=== PATIENT | male | born 1990 | race Caucasian/White ===

== ENCOUNTER 2017-07-15 05:38 | Emergency (ER) | payer BC, SELFPAY ==
[2017-07-15 05:39] VITALS: BP 119/70; PULSE 83; RESP 16; TEMP 36.9; O2SAT 96; BMI 19.3
--- NOTE | 2017-07-15 06:06 | ED.VISSUMM ---
- ER Visit Summary Date of Service: 07/15/17 Chief Complaint: [Abdominal pain] History of Present Illness: The patient is a 27 M [who presents the emergency department with abdominal pain. The pain started at 2 AM abruptly. He rates as a 9 out of 10. It is in the epigastric region. He has nausea but no vomiting today. Yesterday he had vomiting and mild pain. He did have one episode of mid back pain that resolved quickly. He does drink 2-4 beers daily. He does smoke. He is otherwise healthy. No new medications he is followed by Dr. Castaneda. He has had right hernia inguinal surgery as a child but no other surgeries.] Physical Examination: [] Afebrile vital signs within acceptable limits WN WD NAD PERRL EOMI MMM NECK supple and nontender, no masses RRR no murmur rub or gallop, no peripheral edema, symmetric radial pulses CTAB no respiratory distress ABDOMEN is soft tenderness maximal in the epigastric region with mild left upper quadrant tenderness, normal bowel sounds, no distension, no rebound or guarding SKIN is warm and dry no rashes Alert and Oriented x3, CN II-XII in tact, no motor or sensory deficits, gait normal No lymphadenopathy Test Results: [] Emergency Department Course and Treatment: [Patient was given fluids morphine and Phenergan. He was given a GI cocktail. Screening labs were obtained. Patient feels moderately better. Screening labs are unremarkable. Do think he likely has gastritis and possibly ulcer disease. I will give him a prescription for Nexium sucralfate and Phenergan for home. He was given careful precautions for which to return he was given instructions for diet modification he was advised to avoid alcohol and he will follow-up with Dr. Bolden next week. He understands if he has worsening pain persistent vomiting or fever he should return to the emergency department] Treatment Plan: [] Disposition: [Discharge] Impression: [1. Epigastric abdominal pain 2. Gastritis versus ulcer disease] This note was generated with Survel[employer]ation software. It may contain incorrect words, spelling, and punctuation that were not noted in review of the chart prior to signing ED Disposition - Plan for ED Patient: Chief Complaint: Abd Pain Referrals: Alan Castaneda MD [Primary Care Provider] -
[2017-07-15] MEDS: proMETHazine 25 MG/ML Syringe 6.25 MG IV (06:16)
[2017-07-15 06:17] LABS: Absolute Lymphocyte Count 2.41 X10^3/ul (0.83-4.51); Absolute Neutrophil Count 4.3 X10^3/uL (2.0-7.7); Basophil# 0.03 X10^3/uL; Basophil% 0.4 % (0-1); Eosinophil# 0.44 X10^3/uL; Eosinophils% 5.6 % (0-5); Hematocrit 44.5 % (40-54); Hemoglobin 15.2 g/dl (13.0-16.5); Lymphocyte # 2.41 X10^3/ul (4.0); Lymphocyte % 30.7 % (19-41); Mean Corp Hgb Conc 34.2 g/gl (32-36); Mean Corpuscular Hgb 31.5 pg (27.0-32.0); Mean Corpuscular Volume 92.3 fL (80-94); Mean Platelet Vol. 9.4 fl (6.2-12.0); Monocyte# 0.62 X10^3/uL; Monocyte% 7.9 % (0-10); Neutrophil # 4.34 X10^3/uL (2.7-7.7); Neutrophil % 55.3 % (47-70); Platelet Count 279 K/mm3 (150-450); RBC Distribution Width CV 12.9 % (11.6-14.6); RBC Distribution Width SD 42.8 fl (35.1-43.9); Red Blood Count 4.82 M/mm3 (4.6-6.2); White Blood Count 7.9 K/mm3 (4.4-11.0)
[2017-07-15 06:18] LABS: POSITIVE COUNT NO; POSITIVE DIFFERENTIAL NO; POSITIVE MORPHOLOGY NO
[2017-07-15] MEDS: Morphine 4 MG/ML Syringe IV (06:19)
[2017-07-15 06:23] LABS: Red Blood Cells-Urine 0 SEEN /hpf (0-5); Squamous Epithelial Cells - UA 0 SEEN /hpf (0-5)
[2017-07-15 06:26] LABS: BUN 14 mg/dL (7-18); Creatinine, Serum 1.02 mg/dL (0.70-1.30); Glucose 88 mg/dL (74-106)
[2017-07-15 06:27] LABS: ALB/GLOB Ratio 1.2 RATIO (0.9-2.4); AST(SGOT) 17 U/L (15-37); Alanine Aminotransfer ALT/SGPT 27 U/L (16-61); Albumin, Serum 3.9 g/dL (3.2-5.0); Alkaline Phosphatase 93 U/L (45-117); Anion Gap 7 (5-15); BUN/Creat Ratio 13.7 RATIO (10-20); Calcium,Total 8.8 mg/dL (8.5-10.1); Chloride 109 mmol/L (98-107); EST Glomerular Filtration Rate 94 mL/min (>60); Est Glom Filt Rate - Afr Amer 114 mL/min (>60); Estimated Creatinine Clearance 94.69 ml/min; Globulin 3.3 g/dL (2.2-4.2); Lipase 95 U/L (73-393); Potassium 4.1 mmol/L (3.5-5.1); Protein, Total 7.2 g/dL (6.4-8.2); Sodium Level 141 mmol/L (136-145)
[2017-07-15 06:32] LABS: Color, Urine Yellow (Yellow); Glucose, Dipstick Normal (Normal); Ketone-Dipstick Negative (Negative); Leukocyte Esterase-Dipstick 25 /ul (Negative); Nitrite-Dipstick Negative (Negative); Occult Blood-Urine Negative /ul (Negative); Protein-Dipstick 15 mg/dl (Negative); Specific Gravity, Urine 1.025 (1.002-1.030); Urine Bilirubin Dipstick Negative (Negative); Urine Clarity Clear (Clear); Urine Urobilinogen 1 mg/dl (Normal)
[2017-07-15 06:46] LABS: Bacteria RARE /hpf (None Seen); Mucous, Urine 1+ /hpf (<or=2+); White Blood Cells 0-5 SEEN /hpf (0-5)
--- NOTE | 2017-07-15 07:07 | DCINST.ED_ITS ---
ED Disposition - Plan for ED Patient: Chief Complaint: Abd Pain Instructions: ED PUD Vs Gastritis Prescriptions: proMETHazine tablet [Phenergan] 25 mg PO Q6H PRN PRN #10 tablet PRN Reason: Nausea Omeprazole [Prilosec] 20 mg PO BID #28 capsule Sucralfate [Carafate] 1 gm PO 4X/DAY #1100 [facility] [place]: Alan Castaneda MD [Primary Care Provider] - 3-5 Days
--- NOTE | 2017-07-15 07:09 | DCINST.ED_ITS ---
ED Disposition - Plan for ED Patient: Chief Complaint: Abd Pain Instructions: ED PUD Vs Gastritis Prescriptions: proMETHazine tablet [Phenergan] 25 mg PO Q6H PRN PRN #10 tablet PRN Reason: Nausea Omeprazole [Prilosec] 20 mg PO BID #28 capsule Sucralfate [Carafate] 1 gm PO 4X/DAY #1100 [facility] [place] Referrals: Alan Castaneda MD [Primary Care Provider] - 3-5 Days
[2017-07-15 07:42] VITALS: BP 122/74; PULSE 81; RESP 16; O2SAT 100
--- NOTE | 2017-07-15 07:48 | ED.RN ---
THIS NURSE REVIEWED D/C INSTRUCTIONS WITH PT. PT VERBALIZED UNDERSTANDING OF INSTRUCTIONS. IV D/C. IV CATHETER INTACT. PT TOLERATED WELL. PT DENIES FURTHER NEEDS OR QUESTIONS AT THIS TIME. PT AMBULATES FROM ROOM ON OWN WITHOUT ASSISTANCE FROM STAFF
== END 2017-07-15 07:58 | disposition home or self-care (01) ==
PROVIDERS: Emergency Provider Emergency Medicine; Family Provider Family Medicine; PCP Family Medicine
DX: R10.13 Epigastric pain (principal); Z72.0 Tobacco use
CPT/HCPCS: 80053; 81001; 83690; 85025; 99283; A4216

== ENCOUNTER 2018-02-08 05:25 | Emergency (ER) | payer SELFPAY ==
[2018-02-08 05:26] VITALS: BP 104/79; PULSE 61; RESP 14; TEMP 36.3; O2SAT 99; BMI 20.2
--- NOTE | 2018-02-08 05:29 | ED.RN ---
NO OLD EKGS IN MUSE
--- NOTE | 2018-02-08 05:53 | EKG12_ITS ---
Test Reason : CHEST PAIN Blood Pressure : / mmHG Vent. Rate : 056 BPM Atrial Rate : 056 BPM P-R Int : 110 ms QRS Dur : 102 ms QT Int : 420 ms P-R-T Axes : 000 096 054 degrees QTc Int : 405 ms Sinus bradycardia with sinus arrhythmia with short AL Rightward axis Voltage criteria for left ventricular hypertrophy Early repolarization Abnormal ECG Confirmed by OSCAR TAY, ROOSEVELT ([id number]), non linear editor IRINA GAINES ([id number]) on 02/11/2018 10:20:51 AM Referred By: KENNETH Confirmed By:ROOSEVELT MOORE MD
[2018-02-08] MEDS: Ketorolac 30 MG/ML Syringe IV (06:00)
--- NOTE | 2018-02-08 06:09 | ED.DCSUM_ITS ---
History of Present Illness Chief Complaint: Chest Pain Informant: Patient Onset: Hours - 2 Context: - - awoke w/ sx Timing: Continuous Quality: sharp Location: left chest and left upper back/scapula area Current Severity: Moderate Maximum Severity: Moderate Worsened by: movement, somewhat by deep inspiration Relieved by: leaning forward Associated Symptoms: recent URI Narrative: No shortness of breath, palpitations, sweats, nausea/vomiting, left arm discomfort or right arm discomfort, near syncope/syncope. 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 He has been off all weekend and today is Thursday morning. There is a strong family history of heart problems, his dad has had several MIs and he is only 47. Patient is a smoker. He is otherwise healthy. Past Medical History - Allergies and Home Meds Allergies/Adverse Reactions: Allergies No Known Allergies Allergy (Verified 02/08/18 05:30) Primary Care Physician: Alan Castaneda MD [Primary Care Provider] - Past Medical History: None Lives: With Family Smoking Status: Current every day smoker Alcohol: Occasional Drugs: None Review of Systems General: Denies: Chills, Fever, Sweats Eyes: Denies: Visual changes - bilaterally, Diplopia ENT: Reports: Rhinorrhea. Denies: Bilateral ear pain, Sore throat Cardiovascular: Reports: Chest pain. Denies: Palpitations Respiratory: Reports: Cough. Denies: Dyspnea, Sputum, Dyspnea on exertion Gastrointestinal: Denies: Abdominal pain, Nausea, Vomiting, Diarrhea, Melena, Hematochezia Genitourinary: Denies: Dysuria, Hematuria, Frequency Musculoskeletal: Denies: Neck pain, Back pain, Swelling, Extremity Pain Skin: Denies: Rash, Wounds Neurological: Denies: Headache, Weakness, Numbness Physical Exam Vital Signs/Narrative: Vital Signs Temp Pulse Resp BP Pulse Ox 02/08/18 05:26 97.3 F L 61 14 104/79 99 Inital Vital Signs reviewed: Yes General: Well nourished, Well developed, - - Well-appearing, conversational, no acute distress Head: Normocephalic, Atraumatic Eyes: Perrl, EOMI ENT: Moist mucous membranes, No rhinorrhea Neck: Supple, Nontender, No JVD Cardiovascular: Regular rate, Regular rhythm, No murmurs - No pericardial friction rub. Respiratory: No distress, CTA bilaterally, Chest nontender Abdomen: Soft, Nontender, Nondistended, Normal bowel sounds Back: Nontender, Normal Inspection Extremities: Nontender - No calf tenderness bilaterally, No edema Skin: Normal color, No rash Neurological: Alert, Oriented x3, Cranial nerves II-XII grossly intact, Normal Strength, Normal Sensation Psychological: Normal affect Diagnostic/Tx/Re-eval Chest X-Ray - ED: 2 View, Read by ED Physician, No Acute Disease Laboratory Tests 02/08/18 02/08/18 Range/Units 06:02 06:02 WBC 12.4 H (4.4-11.0) K/mm3 RBC 4.80 (4.6-6.2) M/mm3 Hgb 15.1 (13.0-16.5) g/dl Hct 44.5 (40-54) % MCV 92.7 (80-94) fL MCH 31.5 (27.0-32.0) pg MCHC 33.9 (32-36) g/gl RDW 13.0 (11.6-14.6) % RDW Differential 43.0 (35.1-43.9) fl Plt Count 224 (150-450) K/mm3 MPV 10.0 (6.2-12.0) fl Immature Gran % (Auto) 0.200 (0.0-0.9) % Neut % (Auto) 68.5 (47-70) % Lymph % (Auto) 22.0 (19-41) % [place] % (Auto) 5.6 (0-10) % Eos % (Auto) 3.5 (0-5) % Baso % (Auto) 0.2 (0-1) % Absolute Neuts (auto) 8.5 H (2.0-7.7) X10^3/uL Absolute Lymphs (auto) 2.72 (0.83-4.51) X10^3/ul Total Counted Not Reportable Sodium 141 (136-145) mmol/L Potassium 4.3 (3.5-5.1) mmol/L Chloride 108 H (98-107) mmol/L Carbon Dioxide 25.0 (21.0-32.0) mmol/L Anion Gap 8 (5-15) BUN 12 (7-18) mg/dL Creatinine 1.05 (0.70-1.30) mg/dL Estim Creat Clear Calc 96.81 ml/min Est GFR (MDRD) Af Amer 109 (>60) mL/min Est GFR (MDRD) Non-Af 90 (>60) mL/min BUN/Creatinine Ratio 11.4 (10-20) RATIO Glucose 93 (74-106) mg/dL Calcium 8.5 (8.5-10.1) mg/dL Troponin I < 0.015 (<0.045) ng/mL - Rhythm Strip Rhythm Strip: Sinus Rhythm Rate: 62 Ectopy: None - EKG Initial EKG Interpretation: Sinus Rhythm, No Acute Injury Pattern, S-T Elevation - Concave with elevated J-point in lateral leads, V4-V6, as well as inferior leads. No reciprocal changes. No WY depression. [place] interval is short. No delta wave. Intervals within normal limits. No pathologic Q waves. No pathologic inverted T waves. - Medical Decision Making EKG either indicates normal early repolarization, or early pericarditis, which his symptoms are consistent with more so than any other diagnosis. His PERC score is 0, therefore no further emergent workup is indicated in order to rule out pulmonary embolus in this patient at this time. Given his risk factors however, workup is performed including troponin and chest x-ray, and he is given a dose of Toradol and will be reevaluated. Labs including troponin are normal. His chest x-ray is normal. After Toradol his symptoms are improved but still present. He is clinically and hemodynamically stable. I think he is describing classic pericarditis. His EKG is suggestive but not diagnostic of it. I do not have an old one to compare it to. We discussed the heart pathway, his score is 1, for risk. He has 2 risk factors, smoking and family history, the latter of which is significant. We discussed a delta troponin to be repeated at 3 hours, but he declines, understanding that his risk is 1.7% for a cardiac event in the next 30 days. At this time I think it is reasonable to place him on NSAIDs, have him follow-up with his doctor, he may or may not require cardiology referral. Of note, the patient did mention that he has had infrequent palpitations in the past that sound like a symptomatic single PVC, and he has had none of those recently or with these current symptoms. ED Disposition - Plan for ED Patient: Disposition: Home or Assisted Living Chief Complaint: Chest Pain Diagnosis: Acute pericarditis Instructions: ED Chest Pain Pericarditis Prescriptions: Naproxen [Naprosyn] 500 mg PO BID PRN #20 tab Referrals: Alan Castaneda MD [Primary Care Provider] - 1-2 Weeks
[2018-02-08 06:24] LABS: Absolute Lymphocyte Count 2.72 X10^3/ul (0.83-4.51); Absolute Neutrophil Count 8.5 X10^3/uL (2.0-7.7); Basophil# 0.03 X10^3/uL; Basophil% 0.2 % (0-1); Eosinophil# 0.43 X10^3/uL; Eosinophils% 3.5 % (0-5); Hematocrit 44.5 % (40-54); Hemoglobin 15.1 g/dl (13.0-16.5); Lymphocyte # 2.72 X10^3/ul (4.0); Mean Corp Hgb Conc 33.9 g/gl (32-36); Mean Corpuscular Hgb 31.5 pg (27.0-32.0); Mean Corpuscular Volume 92.7 fL (80-94); Monocyte% 5.6 % (0-10); Neutrophil # 8.48 X10^3/uL (2.7-7.7); Neutrophil % 68.5 % (47-70); POSITIVE COUNT NO; POSITIVE DIFFERENTIAL NO; POSITIVE MORPHOLOGY NO; Platelet Count 224 K/mm3 (150-450); White Blood Count 12.4 K/mm3 (4.4-11.0)
[2018-02-08 06:26] VITALS: BP 127/74; PULSE 51; RESP 12; O2SAT 99
--- NOTE | 2018-02-08 06:26 | RAD_ITS ---
STUDY: X-RAY CHEST REASON FOR EXAM: Male, 27 years old. Left-sided chest pain TECHNIQUE: Frontal and lateral views of the chest. COMPARISON: None. FINDINGS: The lungs are clear and expanded. There is no demonstrated pleural abnormality. Normal size heart. Normal mediastinum and magy. Normal visualized pulmonary arteries. Normal visualized aortic arch and descending thoracic aorta. Normal visualized thoracic spine. Normal visualized ribs, clavicles, and shoulders. There is no demonstrated abnormality of the visualized soft tissue structures of the upper abdomen. RAD/Chest PA and Lateral IMPRESSION: Normal x-ray examination of the chest. Electronically Signed: Alan Bernard MD at 6:50 EDT Tel , Service support ,
[2018-02-08 06:32] LABS: Anion Gap 8 (5-15); BUN 12 mg/dL (7-18); BUN/Creat Ratio 11.4 RATIO (10-20); Calcium,Total 8.5 mg/dL (8.5-10.1); Chloride 108 mmol/L (98-107); Creatinine, Serum 1.05 mg/dL (0.70-1.30); EST Glomerular Filtration Rate 90 mL/min (>60); Est Glom Filt Rate - Afr Amer 109 mL/min (>60); Estimated Creatinine Clearance 96.81 ml/min; Glucose 93 mg/dL (74-106); Potassium 4.3 mmol/L (3.5-5.1); Sodium Level 141 mmol/L (136-145)
[2018-02-08 07:07] VITALS: BP 121/67; PULSE 54; RESP 16; O2SAT 99
== END 2018-02-08 07:08 | disposition home or self-care (01) ==
PROVIDERS: Emergency Provider Emergency Medicine; Family Provider Family Medicine; PCP Family Medicine
DX: I30.9 Acute pericarditis, unspecified (principal); F17.200 Nicotine dependence, unspecified, uncomplicated
CPT/HCPCS: 71046; 80048; 84484; 85025; 93005; 96374; 99284; A4216

== ENCOUNTER 2021-03-17 07:00 | Emergency (ER) | payer BC, SELFPAY ==
[2021-03-17 07:00] VITALS: BP 146/78; PULSE 73; RESP 17; TEMP 37.1; O2SAT 100; BMI 20.2
--- NOTE | 2021-03-17 07:14 | EKG12_ITS ---
Test Reason : CP Blood Pressure : / mmHG Vent. Rate : 052 BPM Atrial Rate : 052 BPM P-R Int : 106 ms QRS Dur : 094 ms QT Int : 398 ms P-R-T Axes : -10 080 049 degrees QTc Int : 370 ms Sinus bradycardia with short ME Otherwise normal ECG Confirmed by SAVANNAH TAY, CULLEN ([id number]), editor house organ TALISHA PEDROZA ([id number]) on 03/18/2021 1:53:05 PM Referred By: SU Confirmed By:CULLEN NUÑEZ MD
--- NOTE | 2021-03-17 07:14 | RAD_ITS ---
STUDY: X-RAY CHEST REASON FOR EXAM: Male, 30 years old. Chest pain, cough, dyspnea TECHNIQUE: Frontal view COMPARISON: None. FINDINGS: The lungs are clear and expanded. There is no demonstrated pleural abnormality. Normal size heart. Normal mediastinum and magy. Normal visualized pulmonary arteries. Normal visualized aortic arch and descending thoracic aorta. Normal visualized thoracic spine. Normal visualized ribs, clavicles, and shoulders. There is no demonstrated abnormality of the visualized soft tissue structures of the upper abdomen. RAD/Chest 1 View (Portable) IMPRESSION: Normal x-ray examination of the chest. Electronically Signed: Dixon Kent DO at 8:11 EST Tel [phone], Service support ,
--- NOTE | 2021-03-17 07:17 | EX.ED.DYSGE1 ---
HPI History of Present Illness Chief Complaint: Chest Pain Detail of Chief Complaint: Patient has other symptoms other than chest pain. Informant: patient Onset/Context/Timing Onset: Days (Chest pain started on /Thursday and read HPI) Context: Sudden Onset Timing: Continuous and Waxes and wanes Current Severity: Mild Maximum Severity: Moderate Worsened by: Activity, breathing, movement Relieved by: Nothing Associated Symptoms Associated Symptoms: Loss of appetite, loss of taste, myalgias, arthralgias, cough Narrative Narrative: Patient is a 30-year-old male who has no significant past medical history who presents because of chest pain that is been persistent since onset on /Thursday. The pain is located on the left side over my heart . There is a pleuritic component. Patient denies exposure to anyone's been ill. He is a smoker. No one else is ill that he is with. He does report intermittent headache. [place] photophobia, neck pain or neck stiffness. He does report mild nasal congestion. He does report sore throat. His cough is nonproductive. He does report nausea without vomiting. He has had diarrhea for the past couple of days. He is having watery stools 3-4 times per day. Denies blood or mucus in his stool. He has not noted a rash. As the respiratory therapist came in to perform his EKG patient states that he is burning up . Patient became diaphoretic. He is pale. He does not appear well. Patient asked to have his pants removed. Patient then began to have chills. Prior similar symptoms: No Recent Illness/Hospitalization: No PFSH PFSH Medical History no medical history no medical history Home Medications multivit with [id number] [Men's Daily] cap PO 03/17/21 [History Last Taken Unknown] Allergy/AdvReac Type Severity Reaction Status Date / Time No Known Allergies Allergy Verified 02/08/18 05:30 Surgical History no surgical history no surgical history Social History (Updated 03/17/21 @ 07:[address] Alek Roberto MD) household members: spouse and children Smoking Status: Current every day smoker tobacco type: cigarettes substance use type: does not use ROS ROS ED Constitutional Constitutional ED: Reports chills, fever(s), subjective and sweats; Denies weight loss Eyes Eyes: Denies blurry vision, change in vision or diplopia ENT ENT ED: Reports rhinorrhea and sore throat; Denies ear pain Cardiovascular Cardiovascular: Reports chest pain and palpitations; Denies orthopnea, paroxysmal nocturnal dyspnea or racing heartbeat Respiratory/Chest Respiratory/Chest: Reports cough, dyspnea and dyspnea on exertion; Denies orthopnea, paroxysmal nocturnal dyspnea or sputum Gastrointestinal Gastrointestinal: Reports diarrhea and nausea; Denies abdominal pain, constipation or vomiting Genitourinary Genitourinary ED: Reports other Details: Patient reports decreased urine output. ; Denies dysuria, hematuria or urinary frequency Musculoskeletal Musculoskeletal: Reports arthralgias and myalgias; Denies back pain or neck pain Integumentary Denies abscess or rash Neurologic Neurologic: Reports weakness; Denies headache(s) Psychiatric Psychiatric: Denies anxiety or depression Endocrine Endocrinology: Denies polydipsia, polyphagia or polyuria Allergic/Immunologic Allergic/Immunologic ED: Denies urticaria EXAM Physical Exam Const Vital Signs: 03/17/21 07:00 Temperature 98.8 F Temperature Source Oral Pulse Rate 73 Respiratory Rate 17 Blood Pressure 146/78 H Blood Pressure Mean 100 Pulse Ox 100 Oxygen Delivery Method Room Air Positive well nourished and well developed; Negative for obese, cachectic or contractures General Appearance ED: well developed, diaphoretic, NAD and pallor; Negative for cachectic, contractures or cyanotic Nutritional Appearance: Negative for cachectic or obese HEENT Reports TM's clear and dry mucous membranes Negative for trauma or tenderness Tympanic Membrane ED: Yes TM's clear Mouth ED: Yes dry mucous membranes Mouth: dry mucous membranes Eyes PERRL and EOMs intact bilaterally General Eye ED: Negative for pale conjunctiva or scleral icterus Neck no lymphadenopathy, supple and no JVD Chest Wall inspection of chest normal and palpation of chest normal Resp normal respiratory effort and clear to auscultation bilaterally Effort and Inspection: pain with movement; Negative for retractions Auscultation: rales right base; Negative for wheezes or diminished lung sounds Cardio regular rate, regular rhythm, S1 normal heart sound, S2 normal heart sound and no murmurs GI normal to inspection, nondistended, normoactive bowel sounds, non-tender and non-distended Palpation: soft Back/Spine no CVA tenderness Cervical Spine: Negative for cervical spine tenderness Thoracic Spine / Upper Back: Negative for thoracic spinal tenderness or paraspinal muscle tenderness Lumbar Spine / Lower Back: Negative for lumbar spinal tenderness Extremity normal to inspection General Extremety ED: Negative for edema or tenderness General Extremity: Negative for edema Neuro oriented x3, CN's II-XII intact bilaterally and no sensory deficits noted Sensorium / Orientation: alert Motor Exam: strength 5/5 throughout Psych mental status grossly normal Skin no rashes or lesions noted and no wounds General Skin Exam: pallor; Negative for elasticity normal or jaundice MDM MDM MDM Narrative Medical decision making narrative: With history of fever, chills, diaphoresis, and upper respiratory symptoms with loss of taste and smell suspect patient has Covid. Because there is a pleuritic component need to evaluate for pneumonia versus pulmonary embolus versus other cause. Lab Data Attestation: I reviewed the patient's lab results. Lab results narrative: CBC is unremarkable. Coags are unremarkable. Troponins unremarkable. D-dimer to assess for VTE is unremarkable. Chest x-ray was unremarkable and radiologist agreed there is no acute findings. Patient was informed his symptoms are due to Covid. He is a candidate for monoclonal antibody therapy. Will make referral for assessment. Labs: Laboratory Results - last 24 hr 03/17/21 03/17/21 03/17/21 07:07 07:07 07:07 WBC 5.3 RBC 4.97 Hgb 16.2 Hct 45.9 MCV 92.4 MCH 32.6 H MCHC 35.3 RDW Std Deviation 42.6 RDW Coeff of Basia 12.5 Plt Count 194 MPV 9.7 Immature Gran % (Auto) 0.200 Neut % (Auto) 39.6 L Lymph % (Auto) 42.0 H [place] % (Auto) 14.2 H Eos % (Auto) 3.4 Baso % (Auto) 0.6 Absolute Neuts (auto) 2.1 Absolute Lymphs (auto) 2.22 Nucleated RBC % 0 PT 11.9 INR 0.9 APTT 28.3 D-Dimer Quant (PE/DVT) 0.35 Sodium 136 Potassium 4.0 Chloride 106 Carbon Dioxide 25.0 Anion Gap 5 BUN 14 Creatinine 1.07 Estim Creat Clear Calc 94.66 Est GFR (MDRD) Af Amer 105 Est GFR (MDRD) Non-Af 86 BUN/Creatinine Ratio 13.1 Glucose 107 H Lactic Acid Calcium 8.6 Total Bilirubin 0.20 AST 33 ALT 40 Alkaline Phosphatase 101 Troponin I High Sens 16 Total Protein 7.6 Albumin 3.8 Globulin 3.8 Albumin/Globulin Ratio 1.0 03/17/21 07:20 WBC RBC Hgb Hct MCV MCH MCHC RDW Std Deviation RDW Coeff of Basia Plt Count MPV Immature Gran % (Auto) Neut % (Auto) Lymph % (Auto) [place] % (Auto) Eos % (Auto) Baso % (Auto) Absolute Neuts (auto) Absolute Lymphs (auto) Nucleated RBC % PT INR APTT D-Dimer Quant (PE/DVT) Sodium Potassium Chloride Carbon Dioxide Anion Gap BUN Creatinine Estim Creat Clear Calc Est GFR (MDRD) Af Amer Est GFR (MDRD) Non-Af BUN/Creatinine Ratio Glucose Lactic Acid 0.8 Calcium Total Bilirubin AST ALT Alkaline Phosphatase Troponin I High Sens Total Protein Albumin Globulin Albumin/Globulin Ratio Radiography Chest X-Ray - ED: 1 View and Read by ED Physician (Single view chest x-ray interpreted by me at 0801. The chest x-ray is unremarkable. Cardiac silhouette size normal. Mediastinum is normal. Lung parenchyma is normal. There is slight hyperaeration. Osseous structures are unremarkable.) Diagnostic Testing: Clinical Impression(s) from Imaging Studies Chest X-Ray 03/17/21 07:14 IMPRESSION: Normal x-ray examination of the chest. Electronically Signed: Dixon Kent DO at 8:11 EST Tel [phone], Service support , EKG Initial EKG: Attestation: I personally reviewed and interpreted this EKG as follows: Interpretation: Sinus Bradycardia (Sinus bradycardia with a ventricular rate of 52. Other than the bradycardia the EKG is unremarkable. Patient does have evidence of benign early repolarization. ND interval is 106 ms. QRS durations 94 ms. QT durations 398 ms. [place] is normal.) Discharge Plan Triage Chief Complaint: Chest Pain ED Provider: Alek Roberto Dx/Rx/DC Orders Clinical Impression: COVID-19 virus infection, Bradycardia, sinus, Chest pain, pleuritic Instructions: Coronavirus Disease 2019 (COVID-19): Caring for Yourself or Others Prescriptions: No Action Men's Daily 0.4-600 mg-mcg Capsule PO RF: 0 Stand Alone Forms: ED Work / School Excuse Other Ambulatory Orders: COVID Outpatient Monoclonal Antibody Referral (Routine) Timeframe: 1 Day Facility: [facility] - Location: [facility] [place] Ordered By: Dr. Alek Roberto Primary Care Provider: Alan Castaneda Referrals: Alan Castaneda MD [Primary Care Provider] - 10-14 Days if not better Activity Restrictions/Additional Instructions: 1. Self-isolation for 10 days, until March 24 2. If you have any concerns or difficulty breathing do not hesitate to return Disposition Disposition: Home, Self Care
[2021-03-17 07:23] LABS: Absolute Lymphocyte Count 2.22 X10^3/uL (0.83-4.51); Absolute Neutrophil Count 2.1 X10^3/uL (2.0-7.7); Basophil# 0.03 X10^3/uL; Basophil% 0.6 % (0-1); Eosinophil# 0.18 X10^3/uL; Eosinophils% 3.4 % (0-5); Hematocrit 45.9 % (40-54); Hemoglobin 16.2 g/dL (13.0-16.5); Lymphocyte # 2.22 X10^3/ul (0.83-4.51); Mean Corp Hgb Conc 35.3 g/dL (32-36); Mean Corpuscular Hgb 32.6 pg (27.0-32.0); Mean Corpuscular Volume 92.4 fL (80-94); Mean Platelet Vol. 9.7 fl (6.2-12.0); Monocyte# 0.75 X10^3/uL; Monocyte% 14.2 % (0-10); NRBC Flagged by Analyzer 0 % (0-5); Neutrophil % 39.6 % (47-70); Platelet Count 194 K/mm3 (150-450); RBC Distribution Width CV 12.5 % (11.6-14.6); RBC Distribution Width SD 42.6 fl (35.1-43.9); Red Blood Count 4.97 M/mm3 (4.6-6.2); White Blood Count 5.3 K/mm3 (4.4-11.0)
[2021-03-17 07:42] LABS: AST(SGOT) 33 U/L (15-37); Alanine Aminotransfer ALT/SGPT 40 U/L (16-61); Albumin, Serum 3.8 g/dL (3.2-5.0); Alkaline Phosphatase 101 U/L (45-117); Anion Gap 5 (5-15); BUN 14 mg/dL (7-18); BUN/Creat Ratio 13.1 RATIO (10-20); Calcium,Total 8.6 mg/dL (8.5-10.1); Chloride 106 mmol/L (98-107); Creatinine, Serum 1.07 mg/dL (0.70-1.30); EST Glomerular Filtration Rate 86 mL/min (>60); Est Glom Filt Rate - Afr Amer 105 mL/min (>60); Estimated Creatinine Clearance 94.66 ml/min; Globulin 3.8 g/dL (2.2-4.2); Glucose 107 mg/dL (74-106); Protein, Total 7.6 g/dL (6.4-8.2); Sodium Level 136 mmol/L (136-145); Troponin-I HS 16 pg/mL (3.0-78.0)
[2021-03-17 07:55] LABS: International Normalized Ratio 0.9; Partial Thromboplast Time 28.3 Seconds (24.1-36.2); Prothrombin Time (Protime)PT. 11.9 SECONDS (11.7-14.9)
[2021-03-17 07:57] LABS: Lactic Acid 0.8 mmol/L (0.4-1.9)
[2021-03-17 08:13] LABS: D-Dimer Quantitative (DVT/PE) 0.35 FEU/ug/m (0.27-0.49)
[2021-03-17 08:35] VITALS: BP 138/71; PULSE 76; RESP 18; O2SAT 97
== END 2021-03-17 08:35 | disposition home or self-care (01) ==
PROVIDERS: Emergency Provider Emergency Medicine; PCP Family Medicine
DX: U07.1 COVID-19 (principal); R00.1 Bradycardia, unspecified; R07.81 Pleurodynia; F17.210 Nicotine dependence, cigarettes, uncomplicated
CPT/HCPCS: 36415; 71045; 80053; 83605; 84484; 85025; 85379; 85610; 85730; 87426; 93005; 99284; A4216

== ENCOUNTER 2022-03-12 06:36 | Emergency (ER) | payer BC, SELFPAY ==
[2022-03-12 06:39] VITALS: BP 138/76; PULSE 81; RESP 20; TEMP 36.9; O2SAT 100; BMI 20.8
--- NOTE | 2022-03-12 07:22 | ED.VIS.BACK ---
HPI History of Present Illness Chief Complaint: Back Narrative Narrative: 31-year-old male presenting with upper back pain. He states he is his upper back adjacent to the left side of his thoracic spine. He states that radiates downward slightly. Its not in his flanks. He does admit to a little bit of nausea with the pain at times. He describes the pain as sharp and stabbing. He describes the pain is intermittent. Patient denies any direct trauma. No paresthesias, anesthesias, loss of bladder or bowel control. Patient does report that he was throwing his child up into the air yesterday and catching him and thinks that time he injured himself. He denies any pops or cracks. This did not hurt immediately. This is progressed over the course of last 24 hours. PFSH PFSH Home Medications multivit with minerals-folic acid-lycopene 0.4 mg-600 mcg capsule (Men's Daily) cap PO 03/17/21 [History Last Taken Unknown] naproxen 500 mg tablet (Naprosyn) 500 mg PO BID PRN pain #20 tabs 03/12/22 [Rx Last Taken Unknown] ondansetron 4 mg disintegrating tablet 4 mg PO Q8H PRN nausea and vomiting #10 tabs 03/12/22 [Rx Last Taken Unknown] tizanidine 4 mg capsule (Zanaflex) 4 mg PO QHS PRN muscle spasticity #14 caps 03/12/22 [Rx Last Taken Unknown] Allergy/AdvReac Type Severity Reaction Status Date / Time No Known Allergies Allergy Verified 02/08/18 05:30 Social History (Updated 03/17/21 @ 07:[address] Alek Roberto MD) household members: spouse and children Smoking Status: Current every day smoker tobacco type: cigarettes substance use type: does not use ROS ROS ED Constitutional Constitutional ED: Denies chills, fever(s) or sweats Eyes Eyes: Denies blurry vision or change in vision ENT ENT ED: Denies ear pain or sore throat Cardiovascular Cardiovascular: Denies chest pain, palpitations or racing heartbeat Respiratory/Chest Respiratory/Chest: Denies cough, dyspnea or sputum Gastrointestinal Gastrointestinal: Reports nausea; Denies abdominal pain, constipation, diarrhea or vomiting Genitourinary Genitourinary ED: Denies dysuria, hematuria or urinary frequency Musculoskeletal Musculoskeletal: Reports back pain; Denies arthralgias, myalgias or neck pain Integumentary Denies abscess, Abrasions or rash Neurologic Neurologic: Denies headache(s), paresthesias or weakness Psychiatric Psychiatric: Denies anxiety, depression, suicidal ideation or suicidal thoughts Endocrine Endocrinology: Denies polydipsia or polyuria EXAM Physical Exam Const Vital Signs: 03/12/22 06:39 Temperature 98.5 F Temperature Source Temporal Pulse Rate 81 Respiratory Rate 20 H Blood Pressure 138/76 H Blood Pressure Mean 96 Pulse Ox 100 Oxygen Delivery Method Room Air Positive well nourished General Appearance ED: NAD HEENT Reports moist mucous membranes Eyes PERRL and EOMs intact bilaterally Resp normal respiratory effort and clear to auscultation bilaterally Auscultation: Negative for rales, rhonchi or wheezes Cardio regular rate and regular rhythm GI normal to inspection, nondistended, normoactive bowel sounds Back/Spine Back/Spine Narrative: Tenderness to palpation left thoracic paraspinal musculature. No midline spinal deformity, step-off, tenderness Extremity normal to inspection Neuro oriented x3 and no sensory deficits noted Sensorium / Orientation: alert Psych mental status grossly normal Skin no rashes or lesions noted MDM MDM MDM Narrative Medical decision making narrative: Patient medicated with Norflex, Toradol, Zofran. He states he is concerned for a muscle strain and requested an MRI however I did correctional substance abuse counselor him that we would not be able to provide that for him today. He does not have any red flag signs or symptoms which would warrant this. On examination he is tender in the thoracic paraspinal musculature. Lungs clear to auscultation bilaterally. Equal symmetric breath sounds and chest wall rise heart regular rhythm. I do not believe the patient needs an x-ray at this time. On reevaluation after being medicated he states his pain is much better and down to a 5. He feels he can go home at this point. He is amenable to treatment with prescription for muscle relaxers and he will continue ibuprofen. He was counseled to follow-up with his PCP. Return precautions discussed. Impression: 1. Thoracic strain 2. Nausea Lab Data Attestation: I reviewed the patient's lab results. Discharge Plan Triage Chief Complaint: Back ED Provider: Arnoldo Nunez Dx/Rx/DC Orders Instructions: ED Back Spasm, No Trauma Prescriptions: New naproxen [Naprosyn] 500 mg tablet 500 mg PO BID PRN (Reason: pain) Qty: 20 0RF ondansetron 4 mg tablet,disintegrating 4 mg PO Q8H PRN (Reason: nausea and vomiting) Qty: 10 0RF tizanidine [Zanaflex] 4 mg capsule 4 mg PO QHS PRN (Reason: muscle spasticity) Qty: 14 0RF No Action Men's Daily 0.4-600 mg-mcg Capsule PO Primary Care Provider: Daksha Goel Referrals: Alan Castaneda MD [Non-Staff] - Disposition Disposition: Home, Self Care
[2022-03-12] MEDS: Orphenadrine 60 MG/2 ML Ampul IM (08:10)
[2022-03-12] MEDS: Ondansetron ODT 4 MG Tablet PO (08:10)
[2022-03-12] MEDS: Ketorolac 15 MG/ML Vial IM (08:10)
[2022-03-12] MEDS: Lidocaine 5% Patch 1 PATCH TOPICAL (09:05)
== END 2022-03-12 09:07 | disposition home or self-care (01) ==
LOC: ED 07:26
PROVIDERS: Emergency Provider Student in an Organized Health Care Education/Training Program; PCP Physician Assistant; Visit Provider Student in an Organized Health Care Education/Training Program
DX: S29.019A Strain of muscle and tendon of unspecified wall of thorax, initial encounter (principal); R11.0 Nausea; F17.210 Nicotine dependence, cigarettes, uncomplicated; X50.0XXA Overexertion from strenuous movement or load, initial encounter
CPT/HCPCS: 99281; 96372; 99283